=== PATIENT | male | born 1970 | race Caucasian/White ===

== ENCOUNTER 2021-10-20 17:36 | Emergency (ER) | payer OTHER, SELFPAY ==
[2021-10-20 17:36] VITALS: PULSE 0; RESP 4
--- NOTE | 2021-10-20 17:44 | ECG_ITS ---
Measurements Intervals [place] Rate: 137 P: MI: 0 QRS: 59 QRSD: 116 T: 0 QT: 241 QTc: 364 Interpretive Statements ATRIAL FIBRILLATION WITH RAPID VENTRICULAR RESPONSE POLYMORPHIC VENTRICULAR TACHYCARDIA AND VENTRICULAR COUPLET INCOMPLETE LEFT BUNDLE BRANCH BLOCK LOW QRS VOLTAGE IN LIMB LEADS INFERIOR ST ELEVATION MYOCARDIAL INJURY- ACUTE LATERAL ST ELEVATION MYOCARDIAL INFARCT- ACUTE BASELINE ARTIFACT- II, III, AVL, AVF, V5-V6 ABNORMAL ECG Electronically Signed On 10-21-2021 16:08:44 PROFESSOR OF THEOLOGY by Zachery Ross D.O.
--- NOTE | 2021-10-20 18:00 | PC.NURSE ---
1755 stemi alert over head 1756 dr sandy notified 1756 stemi everbridged [address] [facility] - eta 15min
[2021-10-20 18:02] LABS: Hematocrit 55.1 % (42.0-52.0); Hemoglobin 17.9 g/dL (14.0-18.0); Mean Corpuscular HGB Conc 32.5 g/dl (32-36); Mean Corpuscular Volume 98.6 fl (80-100); Mean Platelet Volume 10.7 fl (7.4-10.4); Platelet Count Result 143 k/mm3 (150-375); Red Blood Count 5.59 M/mm3 (4.6-6.20); Red Cell Distribution Width 11.9 % (11.5-14.5); White Blood Count 13.5 K/mm3 (4.5-10.0)
[2021-10-20 18:12] LABS: INR 1.1; Prothrombin Time 14.3 Seconds (11.1-14.7)
[2021-10-20 18:13] LABS: Partial Thromboplastin Time 34.6 SECONDS (22.3-36.8)
--- NOTE | 2021-10-20 18:16 | PC.NURSE ---
code terminated unsuccessful
--- NOTE | 2021-10-20 18:23 | PC.NURSE ---
attempted to call family no answer.
--- NOTE | 2021-10-20 18:24 | PC.NURSE ---
[address] mays 1817 stemi cancel kar sent 1819 dr sandy notified 1821 russel notified of stemi cancelled
[2021-10-20 18:28] LABS: Alanine Aminotransferase 154 U/L (4-50); Alkaline Phosphatase 71 U/L (38-126); Anion Gap 18 mmol/L (8-16); Aspartate Amino Transferase 141 U/L (17-59); Bilirubin,Total 0.7 mg/dL (0.2-1.3); Blood Urea Nitrogen 15 mg/dL (9-20); Calcium 8.1 mg/dL (8.4-10.2); Carbon Dioxide 19 mmol/L (22-30); Chloride 102 mmol/L (98-107); Estimated Glomerular Filt Rate 49; Glucose 232 mg/dL (65-110); Lipase 126 U/L (23-300); Potassium 2.6 mmol/L (3.4-5.0); Sodium 139 mmol/L (137-145); Troponin I 0.121 ng/mL (0.000-0.034)
--- NOTE | 2021-10-20 18:35 | ED.CPR ---
HPI - CPR General Chief Complaint: Cardiac Arrest/CPR Stated Complaint: CARDIAC ARREST Source: family and EMS Mode of arrival: EMS Limitations: clinical condition History of Present Illness HPI narrative: 51-year-old brought in from home cardiac arrest. As per the EMS patient collapsed any his house his was at home who later called 911. Upon EMS arrival patient was and cardiac arrest CPR was performed had several episodes of V. fib received several rounds of epi, amiodarone and was shocked several times. Upon arrival patient was in PEA, CPR was continued continued as per the ACLS protocol. Patient also reports that he is seeing the doctor for the first time had a EKG which showed some changes and is scheduled to see a investigator claims in 2 days. She also reports that he was on elliptical machine collapsed after his workout. complaint: found unresponsive Onset (ago): minute(s) (45) Timing confirmed by: spouse Place: home AED applied by bystander/laborer fryer farm: No Initial findings in the field: unresponsive Related Data Home Medications Medication Instructions Recorded Confirmed famotidine 20 mg tablet 20 mg PO DAILY 09/24/21 10/15/21 multivitamin 1 tablet PO DAILY 09/24/21 10/15/21 naproxen sodium 220 mg capsule 220 mg PO BID 09/24/21 10/15/21 cholecalciferol (vitamin D3) 50 50 mcg PO DAILY 10/15/21 10/15/21 mcg (2,000 unit) capsule Allergies Allergy/AdvReac Type Severity Reaction Status Date / Time No Known Allergies Allergy Verified 10/15/21 13:15 Review of Systems Review of Systems: ROS unobtainable: Yes unobtainable due to medical condition PMFSH Past Medical History Medical History Anxiety Arthritis GERD without esophagitis Osteoarthritis Vitamin D deficiency Surgical History Surgical History History of ankle surgery 1995 - for removal of left ankle cyst History of arthroscopy of right knee 1990 - Meniscus repair 1994 1997 - removal of bone spurs History of right inguinal hernia repair 1999 History of umbilical hernia repair 2005 History of ventral hernia repair 2007 Family History Family History Sibling Family history of kidney disease Hypertension Father Heart problem Mother Cerebrovascular accident Other Depression Social History Social History Smoking status: Never smoker Alcohol intake: never Substance use: never Substance use type: does not use 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 MDM - Cardiac Arrest/CPR Differential Diagnosis Differential diagnosis: Likely acute massive pulmonary embolism, acute myocardial infarction, cardiac arrest and sudden cardiac Medical Records Attestation: I reviewed the patient's medical records. Lab Data Result diagrams: 10/20/21 17:51 10/20/21 17:51 Labs: Lab Results 10/20/21 10/20/21 10/20/21 Range/Units 17:50 17:51 17:51 WBC Pending RBC Pending Hgb Pending Hct Pending MCV Pending MCH Pending MCHC Pending RDW Pending Plt Count Pending MPV Pending Immature Gran % (Auto) Pending Neut % (Auto) Pending Lymph % (Auto) Pending Kane % (Auto) Pending Eos % (Auto) Pending Baso % (Auto) Pending Lymph # (
[2021-10-20 18:43] LABS: Band Neutrophils Percent 4 % (0-6); Eosinophils Absolute Manual 0.13 K/mm3 (0.02-0.5); Eosinophils Percent Manual 1 % (0-4); Lymphocytes Absolute Manual 9.72 K/mm3 (1.1-4.5); Monocytes Absolute Manual 0.13 K/mm3 (0.1-0.90); Monocytes Percent Manual 1 % (3-9); Neutrophils Absolute Manual 3.51 K/mm3 (1.3-6.7); Neutrophils Percent Manual 22 % (46-73); Nucleated Red Blood Cells 1 %; Smudge Cells PRESENT; Total Cells Counted 100
[2021-10-20 18:44] LABS: Platelet Estimate Adequate (Adequate)
--- NOTE | 2021-10-20 19:33 | PC.NURSE ---
Called long filler cigar roller machine at 192 and he was released per their office to [facility] in [place] as directed by his Roxanne. [facility] notified at 1927 and they request that patient not released from [facility] until they can contact family for possible tissue donation.
--- NOTE | 2021-10-20 22:32 | PC.NURSE ---
per [facility], pt is candidate for donation.
== END 2021-10-20 18:45 | disposition expired ==
LOC: ANHED 17:55 → ANHCATHLAB 18:45 → ANHED 10-22 14:51
PROVIDERS: Emergency Provider Family Medicine
DX: I46.9 Cardiac arrest, cause unspecified (principal); I48.91 Unspecified atrial fibrillation; F41.9 Anxiety disorder, unspecified; M19.90 Unspecified osteoarthritis, unspecified site; K21.9 Gastro-esophageal reflux disease without esophagitis
CPT/HCPCS: 36415; 80053; 83690; 84484; 85025; 85610; 85730; 92950; 93005; 99285